=== PATIENT | male | born 1950 | race Caucasian/White ===

== ENCOUNTER 2016-11-03 05:41 | Day surgery (SDC) | payer MEDICARE ==
--- NOTE | ~2016-11-03 | EGD ---
EGD REPORT [facility] [address] [place] [address] NAME: ROZ CARTER : [birth year] STATUS : REG [facility]#: [id number] AGE: 66 ADM/REG DATE : 11/03/16 MR#: [id number] REPORT SERV DATE: 11/03/16 DICTATED BY: WANDA STOUT DATE: 11/03/16 REPORT STATUS : Draft TRANSCRIBED BY: [facility] DATE: 11/03/16 [facility] Center Patient Name: Roz Carter Date of : 1950 Attending MD: WANDA STOUT, Procedure Date No Time: 11/03/2016 Procedure: Colonoscopy Indications: Screening for colorectal malignant neoplasm Referring MD: MERVIN YE MD Medicines: Monitored Anesthesia Care Complications: No immediate complications. Estimated blood loss: None. Procedure: Pre-Anesthesia Assessment: - ASA Grade Assessment: III - A patient with severe systemic disease. After I obtained informed consent, the scope was passed under direct vision. Throughout the procedure, the patient's blood pressure, pulse, and oxygen saturations were monitored continuously. The CF [id number] was introduced through the anus and advanced to the cecum, identified by appendiceal orifice and ileocecal valve. The colonoscopy was performed without difficulty. The patient tolerated the procedure well. The quality of the bowel preparation was good. Findings: The perianal and digital rectal examinations were normal. Internal hemorrhoids were found during retroflexion and were Grade I (internal hemorrhoids that do not prolapse). The exam was otherwise without abnormality on direct and retroflexion views. Impression: - Internal hemorrhoids. - The examination was otherwise normal on direct and retroflexion views. Recommendation: - Patient has a contact number available for emergencies. The signs and symptoms of potential delayed complications were discussed with the patient. Return to normal activities tomorrow. Written discharge instructions were provided to the patient. - Return to previous diet. - Continue present medications. - Repeat colonoscopy in 10 years for screening purposes. Procedure Code(s): --- Professional --- EGD REPORT [facility] [address] [place]. [address] NAME: ROZ CARTER : [birth year] [place]US : [place] [facility] [place] [id number] AGE: 66 ADM/REG DATE : 11/03/16 MR#: [id number] REPORT SERV DATE: 11/03/16 DICTATED BY: WANDA STOUT DATE: 11/03/16 REPORT STATUS : Draft TRANSCRIBED BY: [employer] DATE: 11/03/16 12045, Colonoscopy, flexible, proximal to splenic flexure; diagnostic, with or without collection of specimen(s) by brushing or washing, with or without colon decompression (separate procedure) Diagnosis Code(s): --- Professional --- K64.0, First degree hemorrhoids Z12.11, Encounter for screening for malignant neoplasm of colon CPT copyright 2013 [employer]. All rights reserved. The codes documented in this report are preliminary and upon water quality tester review may be revised to meet current compliance requirements. WANDA STOUT, 11/03/2016 7:34 AM Number of Addenda: 0 Note Initiated On: 11/03/2016 7:02 AM Scope Withdrawal Time 0 hours 18 minutes 1 second [id number] [place] [address]
[~2016-11-03 05:41] MED LIST: ASAB PO; FLOMAX4 PO; JANUMET1 TA1 PO; MULTIPLE VIT PO; NOVOPEN SC; PREV30 PO; PRINZIDE1 TA1 PO; TOUJEO SQ; VITAMIN D31000 UNIT PO
== END 2016-11-03 23:59 | disposition home or self-care (01) ==
LOC: DMU 05:41
PROVIDERS: Internal Medicine Gastroenterology
PROC: 0DJD8ZZ Inspection of Lower Intestinal Tract, Via Natural or Artificial Opening Endoscopic (ICD-10-PCS; principal; 2016-11-03 08:30)
DX: Z12.11 Encounter for screening for malignant neoplasm of colon (principal); K64.0 First degree hemorrhoids; I10 Essential (primary) hypertension; E11.9 Type 2 diabetes mellitus without complications; K21.9 Gastro-esophageal reflux disease without esophagitis; Z79.4 Long term (current) use of insulin
CPT/HCPCS: 82962